=== PATIENT | male | born 2000 | race African-American/Black ===

== ENCOUNTER 2022-11-04 00:38 | Emergency (ER) | payer SELFPAY ==
[~2022-11-04] VITALS: Ht 185.4 cm; Wt 104.7 kg
[2022-11-04 01:10] VITALS: BP 123/90
[2022-11-04 01:53] LABS: CLARITY URINE CLEAR (CLEAR); COLOR URINE YELLOW (YELLOW); KETONES URINE NEGATIVE (NEGATIVE); LEUKOCYTE ESTERASE URINE NEGATIVE (NEGATIVE); NITRITE URINE NEGATIVE (NEGATIVE); OCCULT BLOOD URINE NEGATIVE (NEGATIVE); PROTEIN URINE NEGATIVE (NEGATIVE); SPECIFIC GRAVITY URINE 1.019 (1.005-1.030); UROBILINOGEN URINE 0.2 E.U./dL (0.2-1.0)
[2022-11-04 02:50] LABS: BASOPHILS % 0.1 % (0.0-2.0); EOSINOPHILS % 1.5 % (0.0-5.0); HEMATOCRIT. 45.9 % (42.0-52.0); HEMOGLOBIN. 16.2 g/dL (14.0-18.0); LYMPHOCYTES % 29.3 % (20.0-50.0); MEAN CORPUSCULAR HEMOGLOBIN 28.3 pg (28.0-32.0); MEAN CORPUSCULAR VOLUME 80.2 fL (80.0-94.0); MEAN PLATELET VOLUME 8.2 fl (7.4-10.4); MONOCYTES % 7.2 % (2.0-8.0); NEUTROPHILS % 61.9 % (40.0-76.0); PLATELET 241 x1000/uL (130-400); RED BLOOD CELL COUNT 5.72 mill/uL (4.7-6.1); RED CELL DISTRIBUTION WIDTH 13.4 % (11.6-14.6)
[2022-11-04 02:51] LABS: CHLORIDE 106 mEq/L (98-107)
[2022-11-04] MEDS ORDERED: DOXY100T2 MT (04:11)
[2022-11-04] MEDS ORDERED: CEFTRIAXONE SODIUM 500 MG/VIAL IM ONE (04:15)
[2022-11-07 04:07] LABS: NEISSERIA GONORRHOEAE NAA Negative (Negative)
== END 2022-11-04 04:28 | disposition home or self-care (01) ==
LOC: ER 00:38
DX: R30.0 Dysuria (principal); R35.0 Frequency of micturition; R10.9 Unspecified abdominal pain; Z87.891 Personal history of nicotine dependence
CPT/HCPCS: 36415; 80048; 81003; 85025; 87086; 87491; 87591; 96372; 99283; J0696